=== PATIENT | male | born 1980 | race African-American/Black ===

== ENCOUNTER 2024-09-01 14:13 | Emergency (ER) | payer MEDICAID ==
[~2024-09-01] VITALS: Ht 180.3 cm; Wt 86.0 kg
[2024-09-01 14:28] VITALS: O2SAT 99
[2024-09-01 14:31] VITALS: TEMP 37; O2SAT 98
[2024-09-01] MEDS: TETANUS, DIPHTHERIA, PERTUSSIS VAC/PF 0.5ML (>10YR OLD) IM ONE (16:38)
[2024-09-01 16:39] VITALS: BP 185/118; PULSE 83; RESP 14
[2024-09-01] MEDS: IBUPROFEN 600MG TABLET PO ONE (16:39)
[2024-09-01] MEDS: SILVER NITRATE APPLICATOR STICK TOP ONE (18:33)
== END 2024-09-01 19:25 | disposition home or self-care (01) ==
LOC: ER 14:13
DX: S61.412A Laceration without foreign body of left hand, initial encounter (principal); S61.307A Unspecified open wound of left little finger with damage to nail, initial encounter; X58.XXXA Exposure to other specified factors, initial encounter; Y93.89 Activity, other specified; Y92.89 Other specified places as the place of occurrence of the external cause; Y99.8 Other external cause status
CPT/HCPCS: 90715; 12001; 90471; 99283; Z7610 ×4

== ENCOUNTER 2024-09-03 18:37 | Emergency (ER) | payer MEDICAID ==
[~2024-09-03] VITALS: Ht 182.9 cm; Wt 91.0 kg
[2024-09-03 18:42] VITALS: BP 155/92; TEMP 36.8; O2SAT 99
[2024-09-03 18:46] VITALS: PULSE 99; RESP 20; O2SAT 99
== END 2024-09-03 21:47 | disposition left against medical advice (07) ==
LOC: ER 18:37
DX: S61.412D Laceration without foreign body of left hand, subsequent encounter (principal); Z48.00 Encounter for change or removal of nonsurgical wound dressing; X58.XXXD Exposure to other specified factors, subsequent encounter

== ENCOUNTER 2024-09-22 18:28 | Emergency (ER) | payer MEDICAID ==
[~2024-09-22] VITALS: Ht 180.3 cm; Wt 88.0 kg
[2024-09-22 18:57] VITALS: O2SAT 99
[2024-09-22] MEDS ORDERED: BO1 TP (20:47)
[2024-09-22 21:09] VITALS: BP 179/114; PULSE 99; RESP 16; TEMP 36.8; O2SAT 97
== END 2024-09-22 21:13 | disposition home or self-care (01) ==
LOC: ER 18:28
DX: S61.412D Laceration without foreign body of left hand, subsequent encounter (principal); Z48.02 Encounter for removal of sutures; X58.XXXD Exposure to other specified factors, subsequent encounter
CPT/HCPCS: 99282